=== PATIENT | female | born 1960 | race Caucasian/White ===

== ENCOUNTER 2016-10-27 14:54 | Emergency (ER) | payer BC ==
[2016-10-27 15:41] VITALS: BP 140/77
--- NOTE | 2016-10-27 16:23 | RAD ---
INDICATION: LEFT elbow pain for one week without proceeding injury. COMPARISON: None. TECHNIQUE: AP and lateral views LEFT elbow. REPORT: Normal alignment. Negative for fat pad displacement to indicate effusion. Mild spurring and indolent periosteal thickening at the level of the sublime tubercle of the ulna favoring chronic pathology of the anterior band of the ulnar collateral ligament. Minimal bone spurs at the medial and lateral epicondyles. Unremarkable soft tissue contours. 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
--- NOTE | 2016-10-27 17:04 | ED ---
Upper Extremity Pain - HPI Summary HPI Summary: Pt arrives to with a c/o L elbow pain when pressing again inner aspect of palm. No pain when rotating arm. No pain when pressing against outer aspect of palm. Pain started last week . Pt also has hx: left tibia fracture to which she is currently in a boot- unknown cause and no known trauma. Pt worried about new fracture considering new CA diagnosis. 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 No known trauma of the elbow or overuse injuries or actions. - History of Current Complaint Chief Complaint: UCGeneralIllness Stated Complaint: ELBOW PAIN Time Seen by Provider: 10/27/16 15:33 Hx Obtained From: Patient Hx Last Menstrual Period: N/A Mechanism Of Injury: Unknown Onset/Duration: Started Weeks Ago Timing: Constant Severity Initially: Mild Severity Currently: Mild Pain Location: Elbow - left Character: Sharp, Aching Aggravating Factor(s): Movement, Flexion, Abduction Alleviating Factor(s): Rest Associated Signs & Symptoms: Positive: Negative Related History: Dominant Hand Right - Risk Factors Non-Orthopedic Risk Factor: Negative DVT Risk Factors: Malignancy Septic Arthritis Risk Factor: Negative Compartment Syndrome Risk Factors: Pain - Allergies/Home Medications Allergies/Adverse Reactions: Allergies Allergy/AdvReac Type Severity Reaction Status Date / Time Amoxicillin [From Augmentin] Allergy Intermediate Rash Verified 10/27/16 15:26 Cephalexin [From Keflex] Allergy Intermediate Rash Verified 10/27/16 15:26 Clavulanic Acid Allergy Intermediate Rash Verified 10/27/16 15:26 [From Augmentin] PMH/Surg Hx/FS Hx/Imm Hx Previously Healthy: Yes Endocrine/Hematology History: Denies: Hx Diabetes, Hx Thyroid Disease Cardiovascular History: Reports: Hx Hypertension Denies: Hx Pacemaker/ICD Respiratory History: Denies: Hx Asthma, Hx Chronic Obstructive Pulmonary Disease (COPD) GI History: Reports: Hx Ulcer - gerd Sensory History: Denies: Hx Hearing Aid Psychiatric History: Denies: Hx Panic Disorder - Cancer History Cancer Type, Location and Year: Hx: monoclonal gammopathy - bone marrow biopsy, approx. Jul 2016 - [facility]. - Surgical History Surgery Procedure, Year, and Place: BIOPSIES - BONE - BENIGN Infectious Disease History: No Infectious Disease History: Denies: Hx Clostridium Difficile, Hx Hepatitis, Hx Human Immunodeficiency Virus (HIV), Hx of Known/Suspected MRSA, Hx Shingles, Hx Tuberculosis, Hx Known/ Suspected VRE, Hx Known/Suspected VRSA, History Other Infectious Disease, Traveled Outside the [place] in Last 30 Days - Family History Known Family History: Positive: Hypertension - Social History Occupation: Employed Full-time Lives: With Family Alcohol Use: None Hx Substance Use: No Substance Use Type: Reports: None Hx Tobacco Use: No Smoking Status (MU): Never Smoked Tobacco Have You Smoked in the Last Year: No Review of Systems Constitutional: Negative Eyes: Negative Cardiovascular: Negative Respiratory: Negative Positive: Arthralgia - left elbow while pressing on palm Skin: Negative Psychological: Normal All Other Systems Reviewed And Are Negative: Yes Physical Exam Triage Information Reviewed: Yes Vital Signs On Initial Exam: Initial Vitals Temp Pulse Resp BP Pulse Ox 99.4 F 78 18 140/77 97 10/27/16 15:29 10/27/16 15:29 10/27/16 15:29 10/27/16 15:29 10/27/16 15:29 Vital Signs Reviewed: Yes Appearance: Positive: Well-Appearing, Well-Nourished Skin: Positive: Warm, Skin Color Reflects Adequate Perfusion Head/Face: Positive: Normal Head/Face Inspection Eyes: Positive: Normal, ERICA, Conjunctiva Clear ENT: Positive: Normal ENT inspection Neck: Positive: Supple, No Lymphadenopathy Respiratory/Lung Sounds: Positive: Clear to Auscultation, Breath Sounds Present Cardiovascular: Positive: Normal, RRR Musculoskeletal: Positive: Strength/ROM Intact, Pain @ - medial elbow pain on palpation Neurological: Positive: Sensory/Motor Intact, Speech Normal Psychiatric: Positive: Normal Diagnostics - Vital Signs Vital Signs Temp Pulse Resp BP Pulse Ox 10/27/16 15:29 99.4 F 78 18 140/77 97 - Laboratory Lab Statement: Any lab studies that have been ordered have been reviewed, and results considered in the medical decision making process. Course/Dx - Course Course Of Treatment: NEGATIVE FOR FX. PATIENT ENCOURAGED TO CONTINUE TO TAKE IBUPROFEN AND FOLLOW UP NEEDED FOR WORSENING SXS. PATIENT AGREES AND OK FOR DISCHARGE HOME. - Diagnoses Differential Diagnosis/HQI/PQRI: Positive: Contusion, Fracture (Closed), Strain Provider Diagnoses: Tendonitis Discharge - Discharge Plan Condition: Stable Disposition: HOME Patient Education Materials: Tendinitis (ED) Referrals: Nena Aguilar MD [Primary Care Provider] - Additional Instructions: FOLLOW UP WITH YOUR PCP IF SYMPTOMS BECOME WORSE, COME BACK TO ED OR FOLLOW UP WITH AN ORTHOPEDIST IBUPROFEN FOR ANY DISCOMFORT. TRY NOT TO OVERUSE THE ELBOW
== END 2016-10-27 16:50 | disposition home or self-care (01) ==
LOC: UCEAST 14:54
DX: M77.9 Enthesopathy, unspecified (principal); I10 Essential (primary) hypertension; Z88.1 Allergy status to other antibiotic agents; Z91.09 Other allergy status, other than to drugs and biological substances
CPT/HCPCS: 99211; G0463

== ENCOUNTER 2016-12-31 13:26 | Emergency (ER) | payer BC ==
[2016-12-31 13:55] VITALS: BP 123/61
--- NOTE | 2016-12-31 14:27 | UC ---
Throat Pain/Nasal Silver HPI - HPI Summary HPI Summary: The patient comes in today for: 1. Cough and sore throat: Onset: Sore throat--three days ago. Cough--2 days ago. Palliative/provocative: Laying down makes it worse at night. Quality: Harsh. Region: Upper respiratory Severity: 5/10 Time: Constant sore throat. Associated symptoms: Cough: productive, but she has not inspected it. Rhinitis: None. Strep exposure: None. Wheezing: At night. Inhalers: None. Dyspnea: None. * - History of Current Complaint Chief Complaint: UCRespiratory Stated Complaint: SORE THROAT,COUGH Time Seen by Provider: 12/31/16 14:21 Hx Obtained From: Patient Hx Last Menstrual Period: N/A ?: No - Allergies/Home Medications Allergies/Adverse Reactions: Allergies Allergy/AdvReac Type Severity Reaction Status Date / Time Amoxicillin [From Augmentin] Allergy Intermediate Rash Verified 12/31/16 13:55 Cephalexin [From Keflex] Allergy Intermediate Rash Verified 12/31/16 13:55 Clavulanic Acid Allergy Intermediate Rash Verified 12/31/16 13:55 [From Augmentin] PMH/Surg Hx/FS Hx/Imm Hx Previously Healthy: No - She has "Sclerodema" Cardiovascular History: Hypertension GI/ History: Gastroesophageal Reflux - Surgical History Surgical History: None Surgery Procedure, Year, and Place: BIOPSIES - BONE - BENIGN - Family History Known Family History: Positive: Cardiac Disease, Hypertension, Diabetes - Social History Occupation: Employed Full-time Alcohol Use: None Substance Use Type: None Smoking Status (MU): Never Smoked Tobacco Have You Smoked in the Last Year: No - Immunization History Most Recent Influenza Vaccination: 2016 Most Recent Tetanus Shot: Pt states less than 10 yrs Review of Systems Constitutional: Negative Skin: Negative Eyes: Negative ENT: Sore Throat Respiratory: Cough Cardiovascular: Negative Gastrointestinal: Negative All Other Systems Reviewed And Are Negative: Yes Physical Exam Triage Information Reviewed: Yes Appearance: Well-Appearing, No Pain Distress, Well-Nourished Vital Signs: Initial Vital Signs Temp 98.9 F 12/31/16 13:47 Pulse 82 12/31/16 13:47 Resp 16 12/31/16 13:47 BP 123/61 12/31/16 13:47 Pulse Ox 99 12/31/16 13:47 Vital Signs Reviewed: Yes Eyes: Positive: Conjunctiva Clear. Negative: Discharge ENT: Positive: Hearing grossly normal. Negative: Pharyngeal erythema, Nasal congestion, Nasal drainage, TM bulging, TM dull, TM red, Tonsillar swelling, Tonsillar exudate Dental: Negative: Gross Decay/Caries @, Dental Fracture @ Neck: Positive: Supple, Nontender, No Lymphadenopathy. Negative: Nuchal Rigidity Respiratory: Positive: Chest non-tender, Lungs clear, No respiratory distress, No accessory muscle use, Other: - Mallampati score: II. Negative: Crackles, Wheezing Cardiovascular: Positive: RRR, No Murmur Abdomen Description: Positive: Nontender, No Organomegaly, Soft. Negative: Distended, Guarding Musculoskeletal: Positive: Strength Intact, ROM Intact, No Edema Neurological: Positive: Alert, Muscle Tone Normal Psychological: Positive: Age Appropriate Behavior, Consolable Skin: Negative: rashes, breakdown Diagnostics - Laboratory Diagnostic Studies Completed/Ordered: Strep test: (-) Throat Pain/Nasal Course/Dx - Course Course Of Treatment: Patient was told of the negative strep test. Treatment options were discussed. - Differential Dx/Diagnosis Differential Diagnosis/HQI/PQRI: Tonsillitis Provider Diagnoses: Viral upper respiratory infection. Viral pharyngitis Discharge - Discharge Plan Condition: Stable Disposition: HOME Patient Education Materials: Pharyngitis (ED), Upper Respiratory Infection (ED) Referrals: Nena Aguilar MD [Primary Care Provider] - 1 Week (Please see your primary care provider in about one to two weeks to see how well you are doing. If you get worse, please be seen sooner.)
== END 2016-12-31 14:55 | disposition home or self-care (01) ==
LOC: UCCORT 13:26
DX: J06.9 Acute upper respiratory infection, unspecified (principal)
CPT/HCPCS: 87651; 99212; G0463

== ENCOUNTER 2017-06-28 15:00 | Emergency (ER) | payer BC ==
[2017-06-28 15:53] VITALS: BP 137/68
--- NOTE | 2017-06-28 16:11 | UC ---
Throat Pain/Nasal Silver HPI - HPI Summary HPI Summary: 57 y/o female with h/o MCUG, scleroderma around the neck/face, HTN, GERD presents with nasal congestion, tenderness, nighttime cough since tuesday, symptoms have been worsening, no ear pain, + throat irritation. no recent abx use, no recent illnesses. 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 - History of Current Complaint Chief Complaint: UCRespiratory Stated Complaint: COUGH Time Seen by Provider: 06/28/17 15:52 Hx Last Menstrual Period: N/A ?: No Onset/Duration: Sudden Onset, Lasting Days Severity: Moderate - Allergies/Home Medications Allergies/Adverse Reactions: Allergies Allergy/AdvReac Type Severity Reaction Status Date / Time Amoxicillin [From Augmentin] Allergy Intermediate Rash Verified 06/28/17 15:50 Cephalexin [From Keflex] Allergy Intermediate Rash Verified 06/28/17 15:50 Clavulanic Acid Allergy Intermediate Rash Verified 06/28/17 15:50 [From Augmentin] PMH/Surg Hx/FS Hx/Imm Hx Previously Healthy: No - htn, MCUG, scleroderma - Surgical History Surgical History: None Surgery Procedure, Year, and Place: BIOPSIES - BONE - BENIGN - Family History Known Family History: Positive: Cardiac Disease, Hypertension, Diabetes - Social History Alcohol Use: None Substance Use Type: None Smoking Status (MU): Never Smoked Tobacco Have You Smoked in the Last Year: No - Immunization History Most Recent Influenza Vaccination: 2016 Most Recent Tetanus Shot: Pt states less than 10 yrs Review of Systems Constitutional: Fatigue ENT: Sore Throat, Sinus Congestion, Sinus Pain/Tenderness Respiratory: Cough Is Patient Immunocompromised?: No All Other Systems Reviewed And Are Negative: Yes Physical Exam Triage Information Reviewed: Yes Appearance: No Pain Distress, Well-Nourished, Ill-Appearing - minimal Vital Signs: Initial Vital Signs Temp 98.4 F 06/28/17 15:46 Pulse 74 06/28/17 15:46 Resp 18 06/28/17 15:46 BP 137/68 06/28/17 15:46 Pulse Ox 99 06/28/17 15:46 Vital Signs Reviewed: Yes Eyes: Positive: Conjunctiva Clear ENT: Positive: Pharyngeal erythema - minimal, Nasal congestion, TM bulging, TM dull, TM red - R ear TM buldging with fluid levels, Sinus tenderness, Uvula midline. Negative: Tonsillar swelling, Tonsillar exudate, Dental tenderness Neck: Positive: Supple, Other: - woody, hard appearing skin consistent with h/o scleroderma around neck b/l Respiratory: Positive: Chest non-tender, Lungs clear, Normal breath sounds, No respiratory distress, No accessory muscle use. Negative: Crackles, Rhonchi, Stridor, Wheezing Cardiovascular: Positive: RRR, No Murmur, Pulses Normal Throat Pain/Nasal Course/Dx - Course Course Of Treatment: AOM, sinusitis, ABXC given, work note - Differential Dx/Diagnosis Differential Diagnosis/HQI/PQRI: Foreign Body, Influenza, Laryngitis, Otitis Media, Pharyngitis, URI Provider Diagnoses: AOM R side, sinusitis Discharge - Discharge Plan Condition: Good Disposition: HOME Prescriptions: Azithromycin TAB* [Zithromax TAB (Z-PRETTY) 250 mg #6 tabs] 2 tab PO .TODAY, THEN 1 DAILY #1 pretty Patient Education Materials: Sinusitis (ED), Otitis Media (ED) Forms: *Work Release Referrals: Nena Aguilar MD [Primary Care Provider] - Additional Instructions: - GO to ER with shortness of breath, fever, increasing symptoms - Increase fluid intake, increase rest - Follow up with primary for re-evaluation within 3-4 days - humidifier at night to decrease cough - over the counter medications for cough, motrin/ tylenol for fever, chills
== END 2017-06-28 16:12 | disposition home or self-care (01) ==
LOC: UCCORT 15:00
DX: H66.91 Otitis media, unspecified, right ear (principal); J32.9 Chronic sinusitis, unspecified; Z88.1 Allergy status to other antibiotic agents; I10 Essential (primary) hypertension; M34.9 Systemic sclerosis, unspecified
CPT/HCPCS: 99212; G0463

== ENCOUNTER 2018-07-03 11:32 | Emergency (ER) | payer SELFPAY ==
[2018-07-03 12:58] VITALS: BP 152/73
--- NOTE | 2018-07-03 13:08 | UC ---
Shoulder Pain HPI - HPI Summary HPI Summary: 58 y/o female presents to the urgent care c/o left shoulder pain s/p injury w/ a ramp railing on Tuesday06/30/2018. 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 She has severe pain , but then she applied ice and took Ibuprofen PO 400mg and symptoms improve. The next day she noticed mild swelling over her shoulder. Pain is sharp at touch 6/10 and mild at rest 3/10. Pt denies numbness or tingling sensation over the left arm, fever, bruise, SOB, chest pain, abdominal pain, N/V/D. 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 - History of Current Complaint Chief Complaint: UCUpperExtremity Stated Complaint: LT SHOULDER INJURY (WC) Time Seen by Provider: 07/03/18 13:04 Hx Obtained From: Patient Hx Last Menstrual Period: N/A Onset/Duration: Sudden Onset, Lasting Days - 3 days, Still Present Timing: Constant Severity Initially: Moderate Severity Currently: Mild Location Of Pain: Is Discrete @ - left shoulder Pain Intensity: 4 Pain Scale Used: 0-10 Numeric Character: Sharp - w/ movement, Dull - at rest Aggravating Factor(s): Movement, Other - touch Alleviating Factor(s): Rest, Ice, OTC Meds - ibuprofen PO 400mg Associated Signs And Symptoms: Positive: Swelling - mild. Negative: Redness, Bruising, Fever, Weakness, Numbness/Tingling Related History: Dominant Hand Right - Risk Factors Non-Orthopedic Risk Factor: Negative DVT Risk Factors: Negative Septic Arthritis Risk Factor: Negative - Allergies/Home Medications Allergies/Adverse Reactions: Allergies Allergy/AdvReac Type Severity Reaction Status Date / Time amoxicillin [From Augmentin] Allergy Intermediate Rash Verified 07/03/18 13:05 cephalexin Allergy Intermediate Rash Verified 07/03/18 13:05 clavulanic acid Allergy Intermediate Rash Verified 07/03/18 13:05 [From Augmentin] PMH/Surg Hx/FS Hx/Imm Hx Previously Healthy: Yes Other Endocrine History: Scleroderma Adultrum of [place], Monoclonal gammopathies Cardiovascular History: Hypertension GI/ History: Gastroesophageal Reflux - Surgical History Surgical History: None Surgery Procedure, Year, and Place: BIOPSIES - BONE - BENIGN; left ankle biopsy - 2018 - Family History Known Family History: Positive: Cardiac Disease, Hypertension, Diabetes - Social History Occupation: Employed Full-time Lives: With Family Alcohol Use: None Substance Use Type: None Smoking Status (MU): Never Smoked Tobacco Have You Smoked in the Last Year: No - Immunization History Most Recent Influenza Vaccination: 2016 Most Recent Tetanus Shot: Pt states less than 10 yrs Review of Systems All Other Systems Reviewed And Are Negative: Yes Constitutional: Positive: Negative Skin: Positive: Other - mild swelling over the left shoulder s/p injury Eyes: Positive: Negative ENT: Positive: Negative Respiratory: Positive: Negative Cardiovascular: Positive: Negative Gastrointestinal: Positive: Negative Genitourinary: Positive: Negative Motor: Positive: Negative Neurovascular: Positive: Negative Musculoskeletal: Positive: Decreased ROM - left shoulder, Other: - left shoulder pain s/p injury Neurological: Positive: Negative Psychological: Positive: Negative Is Patient Immunocompromised?: No Physical Exam - Summary Physical Exam Summary: Vital Signs Reviewed: Yes GENERAL: Well-Appearing, No Pain Distress, Well-Nourished obese female w/o any apparent pain distress Eyes: Positive: Conjunctiva Clear - PERRL,EOMI ENT: Positive: Normal ENT inspection, Hearing grossly normal, Pharyngeal erythema - mild, Nasal drainage - clear, Uvula midline Neck: Positive: Supple, Nontender, No Lymphadenopathy Respiratory: Positive: Chest non-tender, Lungs clear, Normal breath sounds, No respiratory distress Cardiovascular: Positive: RRR, No Murmur, Pulses Normal, Brisk Capillary Refill Abdomen Description: Positive: Nontender, No Organomegaly, Soft. Negative: CVA Tenderness (R), CVA Tenderness (L) Bowel Sounds: Positive: Present Musculoskeletal: LF shoulder: The L shoulder is with/without obvious asymmetry or deformity when compared to the R shoulder. Mild soft tissue swelling over the acromoclavicular joint , no ecchymosis, no bruising, no crepitus. No bony deformity or prominence of humeral head. No erythema, warmth. No Point Tenderness to palpation over the clavicle, or scapula. positive tenderness over Acromioclavicular joint and humeral head. NT to palpation of the bicipital groove . NT to palpation of the muscles of the sternocleidomastoid, pectoralis, biceps/triceps, deltoid, trapezius, . FROM or left shoulder. both passive and active, internal/external rotation, flexion/extension. "empty can and drop arm test : negative. No axillary tenderness or lymphadenopathy. Normal sensation over the deltoid and fingers. Distal motor and neurovascular status is intact. Neurological Exam: Normal Psychological Exam: Normal Skin Exam: Normal Triage Information Reviewed: Yes Vital Signs: Initial Vital Signs Temp 99.2 F 07/03/18 12:47 Pulse 78 07/03/18 12:47 Resp 24 07/03/18 12:47 BP 152/73 07/03/18 12:47 Pulse Ox 99 07/03/18 12:47 Shoulder Course/Dx - Course Course Of Treatment: 58 y/o female presents to the urgent care c/o left shoulder pain s/p injury w/ a ramp railing on Tuesday06/30/2018. 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 She has severe pain, but then she applied ice and took Ibuprofen PO 400mg and symptoms improve. The next day she noticed mild swelling over her shoulder. Pain is sharp at touch 6/10 and mild at rest 3/10. Pt denies numbness or tingling sensation over the left arm, fever, bruise, SOB, chest pain, abdominal pain, N/V/D. Pt w/ PMHX of Scleroderma Adultrum of [employer] and Monoclonal gammopathies.Hx obtained. Pt w/ a left shoulder contusion on examination. LF shoulder X-ray ordered: Impression: Mild AC joint Osteoarthritis and stigmata chronic rotator cuff pathology. This may be due to PT PMHX of Scleroderma. However Pt w/Soft tissue swelling over AC due to contusion. Pt advised to continue taking Ibuprofen PO to alleviate symptoms. Shoulder immobilized with a shoulder sling for 3-4 days. Advised to f/u with Orthopedic referral DR Desir if not improvement of symptoms in 1 week for further management. Pt's BP is elevated today advised to decrease salt in diet, monitor BP and f/u with PCP for further management.D/c instructions explained. Pt understood and agreed w/ plan of care. - Differential Dx/Diagnosis Differential Diagnosis/HQI/PQRI: Arthritis, Contusion, Dislocation, Fracture ( Closed), Rotator Cuff Injury, Sprain, Strain, Tendonitis Provider Diagnosis: Left shoulder pain, Contusion of shoulder, left, Osteoarthritis of left shoulder, Uncontrolled hypertension Discharge - Sign-Out/Discharge Documenting (check all that apply): Patient Departure - D/C home All imaging exams completed and their final reports reviewed: Yes - Discharge Plan Condition: Stable Disposition: HOME Patient Education Materials: Rotator Cuff Tendinitis (ED), Osteoarthritis (ED) , Low-Sodium Diet (ED) Forms: *Work Release Referrals: Nena Aguilar MD [Primary Care Provider] - 1 Week Shahriar Desir MD [Medical Doctor] - 1 Week Additional Instructions: 1- You probably have a contusion of your left shoulder. Please continue taking Ibuprofen PO q6-8hrs prn after meals to alleviate pain and swelling. 2-Please apply ice, keep your shoulder immobilized with the shoulder sling for 3-4 days and then resume movement slowly 3- Please f/u with Orthopedic Dr Desir or your PCP in 1 week is not improvement of symptoms for further evaluation and treatment. Since you are also presenting w/ osteoarthritis and a choric rotator cuff pathology which may be due to your scleroderma. 4- Your BP is elevated today. please decrease salt in your diet, monitor BP and if it continues to be elevated please f/u with your PCP for further management - Billing Disposition and Condition Condition: STABLE Disposition: Home
== END 2018-07-03 14:17 | disposition home or self-care (01) ==
LOC: UCCORT 11:32
DX: M25.512 Pain in left shoulder (principal); S40.012A Contusion of left shoulder, initial encounter; W20.8XXA Other cause of strike by thrown, projected or falling object, initial encounter; Y93.89 Activity, other specified; Y92.89 Other specified places as the place of occurrence of the external cause; Y99.0 Civilian activity done for income or pay; I10 Essential (primary) hypertension; M19.012 Primary osteoarthritis, left shoulder; Z88.0 Allergy status to penicillin; Z88.1 Allergy status to other antibiotic agents; Z88.5 Allergy status to narcotic agent
CPT/HCPCS: 99212; G0463

== ENCOUNTER 2018-11-13 13:17 | Emergency (ER) | payer BC, OTHER ==
[2018-11-13 13:45] VITALS: BP 144/66
--- NOTE | 2018-11-13 14:26 | UC ---
Complaint Female HPI - HPI Summary HPI Summary: 58 -year-old female who had some left-sided lower back pain over the past couple of days. She has had frequency of urination but no burning. She states there will be blood in her urine because she accidentally scratched herself while she was urinating and there was some bleeding in the genital area where she scratched. - History Of Current Complaint Chief Complaint: UCBackPain Stated Complaint: LEFT SIDE LOW BACK PAIN Time Seen by Provider: 11/13/18 14:26 Hx Obtained From: Patient Hx Last Menstrual Period: N/A ?: No Onset/Duration: Gradual Onset Timing: Intermittent - Symptoms Over the past 2-3 days. Severity Initially: Mild Severity Currently: Mild Pain Intensity: 5 Character: Dull Aggravating Factor(s): Nothing Alleviating Factor(s): Nothing Associated Signs And Symptoms: Positive: Negative - Allergies/Home Medications Allergies/Adverse Reactions: Allergies Allergy/AdvReac Type Severity Reaction Status Date / Time amoxicillin [From Augmentin] Allergy Intermediate Rash Verified 11/13/18 13:39 cephalexin Allergy Intermediate Rash Verified 11/13/18 13:39 clavulanic acid Allergy Intermediate Rash Verified 11/13/18 13:39 [From Augmentin] Home Medications: Home Medications Ibuprofen TAB* [Advil TAB*] 400 mg PO Q6H PRN 11/13/18 [History Confirmed ] PMH/Surg Hx/FS Hx/Imm Hx Previously Healthy: Yes - Surgical History Surgical History: Yes Surgery Procedure, Year, and Place: BIOPSIES - BONE - BENIGN; left ankle biopsy - 2018 - Family History Known Family History: Positive: Cardiac Disease, Hypertension, Diabetes, Renal Disease - Patient has sibling with kidney stones. - Social History Alcohol Use: None Substance Use Type: None Smoking Status (MU): Never Smoked Tobacco Have You Smoked in the Last Year: No - Immunization History Most Recent Influenza Vaccination: 2016 Most Recent Tetanus Shot: Pt states less than 10 yrs Review of Systems All Other Systems Reviewed And Are Negative: Yes Motor: Positive: Negative Neurovascular: Positive: Negative Musculoskeletal: Positive: Other: - Mild soreness in the left lower back. Patient is unable to replicate the pain. Neurological: Positive: Negative Psychological: Positive: Negative Is Patient Immunocompromised?: No Physical Exam Triage Information Reviewed: Yes Appearance: Well-Appearing, No Pain Distress, Well-Nourished Vital Signs: Initial Vital Signs Temp 97.9 F 11/13/18 13:41 Pulse 67 11/13/18 13:41 Resp 18 11/13/18 13:41 BP 144/66 11/13/18 13:41 Pulse Ox 97 11/13/18 13:41 Vital Signs Reviewed: Yes Eye Exam: Normal ENT Exam: Normal Neck exam: Normal Respiratory Exam: Normal Cardiovascular Exam: Normal Abdominal Exam: Normal Bowel Sounds: Positive: Present Musculoskeletal Exam: Normal Neurological Exam: Normal Psychological Exam: Normal Skin Exam: Normal Complaint Female Dx - Course Course Of Treatment: This 58-year-old female thought she might have a urinary tract infection because she was having some urinary frequency over the past couple of days. Her urine was positive with leukocytes. It was also positive with blood but she stated she accidentally scratched herself on the genital area while she was urinating and was able to retrieve blood. She has no CVA tenderness. She is unable to replicate the pain with movement. I'm going to treat her for urinary tract infection and then follow-up with her primary care provider in 3 or 4 days if no improvement. - Differential Dx/Diagnosis Provider Diagnosis: UTI (urinary tract infection) Discharge - Sign-Out/Discharge Documenting (check all that apply): Patient Departure All imaging exams completed and their final reports reviewed: No Studies - Discharge Plan Condition: Good Disposition: HOME Prescriptions: Nitrofurantoin Monohyd/M-Cryst [Macrobid 100 mg Capsule] 100 mg PO BID 7 Days # 14 cap Patient Education Materials: Urinary Tract Infection in Women (ED) Referrals: Nena Aguilar MD [Primary Care Provider] - Additional Instructions: Increase fluids, follow-up with her primary care provider if no improvement in 4 -5 days. If you develop fever, chills, increased back pain, vomiting and unable to keep the medicine down, go to the emergency room. - Billing Disposition and Condition Condition: GOOD Disposition: Home - Attestation Statements Provider Attestation: I was available for consult. This patient was seen by the [facility]. The patient was not presented to, seen by, or examined by me. -Regis
--- NOTE | 2018-11-15 07:06 | UC ---
- Progress Note Progress Note: urine culture final - no growth please call pt - if not improved needs to f.u with PCP if improved, complete abx course ljj 11/15/18 Course/Dx - Diagnoses Provider Diagnoses: UTI (urinary tract infection) Discharge - Sign-Out/Discharge Documenting (check all that apply): Post-Discharge Follow Up All imaging exams completed and their final reports reviewed: No Studies - Discharge Plan Condition: Good Disposition: HOME Prescriptions: Nitrofurantoin Monohyd/M-Cryst [Macrobid 100 mg Capsule] 100 mg PO BID 7 Days # 14 cap Patient Education Materials: Urinary Tract Infection in Women (ED) Referrals: Nena Aguilar MD [Primary Care Provider] - Additional Instructions: Increase fluids, follow-up with her primary care provider if no improvement in 4 -5 days. If you develop fever, chills, increased back pain, vomiting and unable to keep the medicine down, go to the emergency room. - Billing Disposition and Condition Condition: GOOD Disposition: Home
== END 2018-11-13 14:43 | disposition home or self-care (01) ==
LOC: UCCORT 13:17
DX: N39.0 Urinary tract infection, site not specified (principal); Z88.3 Allergy status to other anti-infective agents
CPT/HCPCS: 81003; 87086; 99212; G0463

== ENCOUNTER 2019-02-02 19:04 | Emergency (ER) | payer BC ==
[2019-02-02 19:30] VITALS: BP 151/72
--- NOTE | 2019-02-02 19:58 | UC ---
UC General HPI - HPI Summary HPI Summary: 58-year-old woman comes in with a chief complaint of feeling of a mass in her neck. About 2 weeks ago patient started noticing what feels like increased swelling of the right lower aspect of her neck. Its gradually gotten more noticeable with some difficulty swallowing. Denies any shortness of breath. No fevers or chills feels well otherwise. 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 She is in the process of undergoing evaluation for this condition. - History of Current Complaint Chief Complaint: UCGeneralIllness Stated Complaint: THROAT CONCERN Time Seen by Provider: 02/02/19 19:29 Hx Last Menstrual Period: N/A Pain Intensity: 0 - Allergy/Home Medications Allergies/Adverse Reactions: Allergies Allergy/AdvReac Type Severity Reaction Status Date / Time amoxicillin [From Augmentin] Allergy Intermediate Rash Verified 02/02/19 19:24 cephalexin Allergy Intermediate Rash Verified 02/02/19 19:24 clavulanic acid Allergy Intermediate Rash Verified 02/02/19 19:24 [From Augmentin] PMH/Surg Hx/FS Hx/Imm Hx Previously Healthy: Yes - SCLEREDEMA - Surgical History Surgical History: Yes Surgery Procedure, Year, and Place: BIOPSIES - BONE - BENIGN; left ankle biopsy - 2018 - Family History Known Family History: Positive: Cardiac Disease, Hypertension, Diabetes, Renal Disease - Patient has sibling with kidney stones. - Social History Alcohol Use: None Substance Use Type: None Smoking Status (MU): Never Smoked Tobacco Have You Smoked in the Last Year: No - Immunization History Most Recent Influenza Vaccination: 2016 Most Recent Tetanus Shot: Pt states less than 10 yrs Review of Systems All Other Systems Reviewed And Are Negative: Yes Constitutional: Positive: Negative Skin: Positive: Other - SCLEREDEMA Eyes: Positive: Negative ENT: Positive: Other - SEE HPI Respiratory: Positive: Negative Cardiovascular: Positive: Negative Gastrointestinal: Positive: Negative Motor: Positive: Negative Neurovascular: Positive: Negative Musculoskeletal: Positive: Other: - SEE HPI Neurological: Positive: Negative Psychological: Positive: Negative Is Patient Immunocompromised?: No Physical Exam Triage Information Reviewed: Yes Appearance: Well-Appearing, No Pain Distress, Well-Nourished Vital Signs: Initial Vital Signs Temp 97.4 F 02/02/19 19:25 Pulse 72 02/02/19 19:25 Resp 20 02/02/19 19:25 BP 151/72 02/02/19 19:25 Pulse Ox 100 02/02/19 19:25 Vital Signs Reviewed: Yes Eye Exam: Normal Eyes: Positive: Conjunctiva Clear ENT: Positive: Pharynx normal - Uvula is midline posterior pharynx is open. Anatomy is symmetric., Uvula midline, Other. Negative: Tonsillar swelling, Muffled voice, Hoarse voice Neck: Positive: Other: - On examination of the neck the tissue is firm bilaterally consistent with scleredema. The right lower aspect of the neck appears to be more full than the left side. There is no stridor. Respiratory: Positive: Lungs clear, Normal breath sounds, No respiratory distress. Negative: Stridor Cardiovascular: Positive: RRR Musculoskeletal: Positive: Strength Intact Neurological: Positive: Alert Psychological: Positive: Age Appropriate Behavior Skin: Positive: Other - SCLEREDEMA Course/Dx - Course Course Of Treatment: On examination the patient is no respiratory distress she has been able to eat and drink. Patient relates to me that during a procedure where she needed to be intubated about 4 months ago that a very difficult time with intubation due to the scleredema. Due to the scleredema and the complexity of her condition I recommended further evaluation in the [facility] emergency department. At this time the plan is as long she does not get any worse she's got doctor her doctor on Tuesday, February 05, 2019 to determine further evaluation. Overall I recommended that a [facility] is the most appropriate place for her. If she gets any worsening she is going to get evaluated in the emergency department preferably the [facility] emergency department. - Diagnoses Provider Diagnosis: Mass in neck Discharge - Sign-Out/Discharge Documenting (check all that apply): Patient Departure All imaging exams completed and their final reports reviewed: No Studies - Discharge Plan Condition: Stable Disposition: HOME Referrals: Nena Aguilar MD [Primary Care Provider] - Additional Instructions: FOLLOW UP WITH YOUR DOCTOR ON 02/05/19, FOR YOUR NECK MASS GO TO THE EMERGENCY DEPARTMENT IF WORSE; DIFFICULTY SWALLOWING OR BREATHING OR ANY QUESTIONS OR CONCERNS. - Billing Disposition and Condition Condition: STABLE Disposition: Home
== END 2019-02-02 20:04 | disposition home or self-care (01) ==
LOC: UCCORT 19:04
DX: R22.1 Localized swelling, mass and lump, neck (principal); M34.9 Systemic sclerosis, unspecified
CPT/HCPCS: 99211; G0463

== ENCOUNTER 2019-05-10 12:09 | Emergency (ER) | payer BC ==
--- OUTSIDE RECORDS SUMMARY | 2019-05-10 12:29 | XMS REPORT | Summary of Care ---
:1960 Author Organization [facility] Address [address] [place] [address] Care Team Providers Name Role Phone Nena Aguilar MD Primary Care Provider Reason for Referral MRI/CAT/PET Scan (Routine) Status Reason Specialty Diagnoses / Referred By Referred To Procedures Contact Contact Authorized Diagnoses Lung nodule Erlinda Jaimes MD Procedures CT CHEST WITHOUT IV CONTRAST [address] [place] [address] Reason for Visit Reason Comments Sleep Apnea Follow Up Encounter Details Date Type Department Care Team Description 04/02/2019 Office Visit [facility] Erlinda Jaimes MD Solitary pulmonary nodule (Primary Dx); [address] Lung nodule [place] [id number] [place] [id number] Allergies Active Allergy Reactions Severity Noted Date Comments Augmentin Rash 01/31/2008 Keflex Rash 01/31/2008 documented as of this encounter (statuses as of 04/02/2019) Medications Medication Sig Dispensed Refills Start Date End Date Status famotidine (PEPCID) 20 MG Take 20 mg by 0 Active Oral Tab mouth TWICE DAILY. diclofenac (VOLTAREN) 1 % 4 g by Topical 100 g 2 01/18/2018 Active Transdermal route FOUR GelIndications: Chronic TIMES DAILY pain of both knees NEEDED (knee pain). ibuprofen (MOTRIN) 200 MG Take 400 mg by 0 Active Oral Tab mouth EVERY SIX HOURS NEEDED for Pain. mometasone (ELOCON) 0.1 % Apply to rash 45 g 0 03/30/2018 Active Apply externally bid x 1 week as CreamIndications: needed Dermatitis of lower extremity Omeprazole 40 MG Oral TAKE 1 CAPSULE 30 Cap 5 10/30/2018 Active CAPSULE DELAYED BY MOUTH DAILY RELEASEIndications: NEEDED FOR Gastroesophageal reflux GERD disease without esophagitis lisinopril (PRINIVIL, Take 1 Tab by 90 Tab 3 02/07/2019 Active ZESTRIL) 20 MG Oral mouth DAILY. TabIndications: Essential hypertension, benign documented as of this encounter (statuses as of 04/02/2019) Active Problems Problem Noted Date Primary osteoarthritis of left knee 10/11/2017 Chronic pain of right knee 07/29/2017 Stress fracture of left tibia 12/17/2016 Monoclonal gammopathies 11/01/2016 Essential hypertension, benign 09/28/2012 Reflux esophagitis 09/28/2012 BMI 40.0-44.9, adult 02/03/2012 Overview: sustained wt reduction with portion control and sustained routine exercise. Set realistic goal of 1# wt reduction /week set 10 week goals. 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 2008. Monoclonal gammopathy Overview: followed by hematology, Dr Funez, now once yearly. has had bone marrow biopsies. 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 documented as of this encounter Last Filed Vital Signs Vital Sign Reading Time Taken Comments Blood Pressure 124/70 04/02/2019 10:36 AM EDT Pulse 84 04/02/2019 10:36 AM EDT Temperature 36.7 04/02/2019 10:36 AM EDT C (98.1 F) Respiratory Rate - - Oxygen Saturation 94% 04/02/2019 10:36 AM EDT RA Inhaled Oxygen Concentration - - Weight 126.6 kg (279 lb) 04/02/2019 10:36 AM EDT Height 167.6 cm (5' 6") 04/02/2019 10:36 AM EDT Body Mass Index 45.03 04/02/2019 10:36 AM EDT documented in this encounter Progress Notes Erlinda Jaimes MD - 04/02/2019 11:00 AM EDT PULMONARY MEDICINE Keily Buenrostro [id number] 1960 04/02/19 The patient is known to pulmonary medicine service. She is a patient of Dr. Subramanian and is here for a for MAILE and lung nodule. I am evaluating the patient as a covering physician for Dr. Subramanian in hisabsence. Patient will continue to be follow Dr. Subramanian on his return to pulmonary service. Patient was last seen by Dr. Subramanian on 10/20/2018 and parts of his note are being copied to my note for continuation of management thought process. CHIEF COMPLAINT: Obstructive sleep apnea Lung nodule HISTORY OF PRESENT ILLNESS : Keily Buenrostro is a 58-y.o. female. HPI Comes for follow up with surveillance imaging for lung nodules with previously described mediastinallymphadenopathy. Asymptomatic from a respiratory standpoint. Complains of excessive daytime sleepiness, loud snoring, fragmented sleep, gasps and snort in sleep. Requires frequent naps and does not feel refreshed. [place] score is 9 Associated this with her anatomy of large neck, class 4 airway with mouth opening impairment + classified as Difficult airway by anesthesia at [facility] ; pre test probability of MAILE is estimated high. Follow-up visit: 04/02/2019 Patient is being followed in pulmonary clinic because of lung nodules and obstructive sleep apnea. Patient's lung nodules have been stable on CT scan. Patient is tolerating her CPAP for obstructive sleep apnea for approximately 4 weeks. We do not have the compliance report but she admits to wearingit for at least 5 to 5-1/2 hours. Patient was counseled on compliance. See assessment section below. Past Medical History: Diagnosis Date Abnormal CT of the chest 08/2017 stable pulmonary nodules, small airway disease. Essential (primary) hypertension Essential hypertension, benign H/O CT scan of chest 03/17/[address]: normal coronaries, zero calcium score. Lung nodules noted. History of Holter monitoring for palpitations, negative. Hx of cardiovascular stress test 02/14/2017 indeterminate for ischemia. Monoclonal gammopathy followed by hematology, Dr Funez, now once yearly. has had bone marrow biopsies. 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 2008. Thought she had Mimi Banerjeeer bone dz but other DR. did not thinks she did, has bone pain Past Surgical History: Procedure Laterality Date BONE MARROW BIOPSY 1989 negative. SKIN SUBQ BIOPSY legs, for recurrent leg pain, Family History Problem Relation Age of Onset Diabetes Mother Heart Mother 54 MS Stroke Mother Hypertension Mother Cancer Sister thyroid cancer Diabetes Sister Diabetes Brother Heart Brother 67 MS Diabetes Maternal Grandmother Diabetes Maternal Grandfather Diabetes Brother Heart Brother Afib Allergies Allergen Reactions Augmentin Rash Keflex Rash Social History Socioeconomic History Marital status: Single Spouse name: Not on file Number of children: Not on file Years of education: Not on file Highest education level: Not on file Occupational History Not on file Social Needs Financial resource strain: Not on file Food insecurity: Worry: Not on file Inability: Not on file Transportation needs: Medical: Not on file Non-medical: Not on file Tobacco Use Smoking status: Never Smoker Smokeless tobacco: Never Used Substance and Sexual Activity Alcohol use: No Drug use: No Sexual activity: Never Lifestyle Physical activity: Days per week: Not on file Minutes per session: Not on file Stress: Not on file Relationships Social connections: Talks on phone: Not on file Gets together: Not on file Attends jain service: Not on file Active member of club or organization: Not on file Attends meetings of clubs or organizations: Not on file Relationship status: Not on file Intimate partner violence: Fear of current or ex partner: Not on file Emotionally abused: Not on file Physically abused: Not on file Forced sexual activity: Not on file Other Topics Concern Back Care Not Asked Bike Helmet Not Asked Blood Transfusions No Caffeine Concern Not Asked Exercise Yes Comment: walks at work Hobby Hazards Not Asked International Travel Not Asked Service Not Asked Occupational Exposure Not Asked Seat Belt Not Asked Self-Exams Not Asked Sleep Concern Not Asked Special Diet Not Asked Stress Concern Not Asked Weight Concern Not Asked Social History Narrative Single. No children. 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 Routine exercise: walks 2x/week 1 mile. Pets: 1 cat REVIEW OF SYSTEMS Review of Systems - History obtained from the patient General ROS: Malaise; excessive daytime sleepiness Psychological ROS: negative Ophthalmic ROS: negative ENT ROS: negative Allergy and Immunology ROS: negative Hematological and Lymphatic ROS: negative Endocrine ROS: negative Respiratory ROS: no cough, shortness of breath, or wheezing Cardiovascular ROS: no chest pain or dyspnea on exertion Gastrointestinal ROS: no abdominal pain, change in bowel habits, or black or bloody stools Genito-Urinary ROS: no dysuria, trouble voiding, or hematuria Musculoskeletal ROS: negative Neurological ROS: no TIA or stroke symptoms BP 124/70 Pulse 84 Temp 98.1 F (36.7 C) (Temporal) Ht 5' 6" (1.676 m ) Wt 279 lb (126.6 kg) SpO2 94% BMI 45.03 kg/m2 PHYSICAL EXAMINATION Head: Normocephalic and atraumatic Neck: No JVD; No palpable LN HEENT: PEARLA; No Conjunctival Injection Neck: No thyroid enlargement or enlarged LN noted; CVS: S1S2 regular; no murmurs appreciated Resp: NVB; A/E equal b/l; no rhonchi's or wheezes are audible GIT: Abdomen. Soft; No tenderness; No Organomegaly appreciated; +BS HOP WEIGHER: No focal deficits; Moves all 4 extremities spontaneously; Ext: No cyanosis, -ve edema; peripheral pulses are palpable and equal Skin: Intact without lesions or rashes LABS Lab Results Component Value Date WBC 6.3 05/16/2017 HGB 12.6 05/16/2017 HCT 39.3 05/16/2017 PLAT 331 05/16/2017 Lab Results Component Value Date NA 145 05/16/2017 K 4.1 05/16/2017 CL 107 05/16/2017 CO2 26 05/16/2017 GLUCOSE 104 (H) 05/16/2017 BUN 10 05/16/2017 CREATININE 0.8 05/16/2017 CALCIUM 9.1 05/16/2017 EGFR >60 05/16/2017 No results found for: INR No results found for: PH, PCO2, PO2, SAT, BE RADIOLOGY Lungs and pleura: Multiple pulmonary nodules are stable sinceFe 2018: 7 mm in the right upper lobe on axial 158 series 7 4 mm in right upper lobe on axial 133 5 mm in the left upper lobe on axial 94 5 mm in the left upper lobe on axial 113 IMPRESSION Multiple pulmonary nodules are stable since August 2017. SLEEP STUDY IMPRESSION Obstructive sleep apnea Lung nodule Scleroderma ASSESSMENT Patient is a 58-year-old white female who has been diagnosed with obstructive sleep apnea. Patient also has history of lung nodules which is being followed annually. Patient comes for follow-up today. She feels well otherwise. The CT scan of the chest without contrast was discussed patient was notified that it is no change in the sizes of the lung nodules. We have ordered repeat CT chest without contrast in 1 year for January 2020. After patient was diagnosed with obstructive sleep apnea, she was started on auto CPAP. The settings were between 6 cm H2O and 18 cm H2O. Patient has been using the CPAP for approximately 4 weeks now. She feels that her morning grogginess is disappeared and she feels more energetic in the daytime.We have recommended that patient follow-up in 3 months with compliance report from the [facility]. Patient was also counseled to lose weight. Patient has been educated on sleep hygiene principles. PLAN Continue use of auto CPAP Compliance is of utmost importance Obtain supply of mask and CPAP every 6 months Prior to next visit as per compliance report from [facility] to be faxed to our office Follow sleep hygiene principles Return to clinic in 3 months or earlier if needed Erlinda Jaimes MD 04/02/19 documented in this encounter Plan of Treatment Date Type Specialty Care Team Description 07/10/2019 Office Visit Pulmonary Francis Myers MD [address] [place] [address] 01/22/2020 Appointment Radiology 01/22/2020 Office Visit Pulmonary Francis Myers MD [address] [place] [address] Name Type Priority Associated Diagnoses Order Schedule CT CHEST WITHOUT IV Imaging Routine Lung nodule Expected: 01/23/2020, CONTRAST Expires: 04/01/2020 Health Maintenance Due Date Last Done Comments ZOSTER IMMUNIZATION SERIES 2010 (1 of 2) DEPRESSION SCREENING 02/08/2020 02/07/2019 DIABETES SCREENING 02/15/2020 02/14/2019, 03/16/2018, 05/16/2017, Additional history exists LIPID DISORDER SCREENING 02/15/2020 02/14/2019, 03/16/2018, 04/12/2016 OSTEOPOROSIS SCREENING 12/07/2021 12/07/2016 COLONOSCOPY SCREENING 09/11/2023 09/11/2013 (Declined) HPV IMMUNIZATION SERIES Aged Out No longer eligible based on patient's age to complete this topic MENINGOCOCCAL VACCINE IMM Aged Out No longer eligible based on patient's age to complete this topic PNEUMOCOCCAL 0-64 YRS Aged Out No longer eligible based on patient's age to complete this topic documented as of this encounter Goals Goal Patient Goal Associated Recent Patient-Stated? Author Type Problems Progress Blood Pressure Blood Pressure 124/70 No Kate, < 140/90 (04/02/2019 Breana, 10:36 AM EDT) Note: Hypertension Care Plan Based on the patient's clinical history and according to JNC 8 guidelines target blood pressure goal is less than 140/90. Based on the patient's last blood pressure of BP: 128/72 mmHg the patient is at at goal. As your provider, it is important that I advise you regarding: your current medications and help you with any challenges you may face taking your medications as directed (ex. instructions, cost, side effects, and interactions). Important lifestyle changes: exercise, weight reduction and diet your clinical goals and how you can achieve success: weight reduction, exercise plan and diet improvements medication management: adjusted medications as appropriate patient education/self-management tools provided: Current self-management tools adequate To successfully manage my Hypertension I will: monitor my blood pressure daily, understanding that my goal is less than 140/ 90 per my healthcare provider's recommendation. I will schedule an appointment with my provider if consistent abnormal readings greater than 160/100. take medications every day as prescribed by my healthcare provider and if unable to take them I will discuss with my provider. monitor for symptoms of chest pain, chest tightness/pressure, irregular heartbeat, persistent dizziness, radiating arm pain, and neck or jaw pain. If any of these symptoms are noticed I will seek medical attention immediately by calling 911 exercise/walk 30 minutes 3 day(s) per week. If I experience chest pain, chest tightness, or shortness of breath, I will seek medical attention immediately. follow a diet rich in fruits, vegetables, and low-fat dairy products with reduced content of saturated & total fat. I will reduce my sodium intake daily. An example is the DASH diet. To obtain more information please refer to the DASH Eating Plan listed in Educational Resources. record my blood pressure results. [employer] is safe and secure way for you to do this in your medical record online. try to obtain an ideal body weight. My recent weight was Weight: 258 lb 8 oz (117.255 kg). My weight loss goal for my next office visit is 8# less . limit alcohol consumption. For men two drinks per day and women one drink per day. if currently smoking, will discuss how to quit smoking with my healthcare provider and work towards quitting. Educational Resources: National Heart, Lung, & Blood [place] http://nhlbi.nih.gov/hbp/index.html The DASH Diet Eating Plan http://www.nhlbi.nih.gov/health/health-topics/ topics/dash/ Academy of Nutrition & DIetetics http://eatright.org National Smoking Cessation Site http://smokefree.gov Blood Pressure < Blood Pressure 124/70 (04/02/2019 Nena Centeno 140/90 10:36 AM EDT) MD Santo Note: This is an individualized treatment (blood pressure) goal for Keily Buenrostro: Displayed above (on the left) is your goal for blood pressure control. Your most recent blood pressure is also shown above, on the right. You should try to achieve blood pressures that are lower than your goal listed above (on the left). Weight loss vs. 18 Lifestyle 0 (04/02/2019 10:36 AM No Nena Aguilar mo max (lbs) >= 10 EDT) Note: This is an individualized lifestyle goal for Keily Buenrostro: Your body mass index (BMI) is more than 30. You should lose weight. A reasonable starting goal is to lose 10 pounds. Displayed above is how many pounds you have lost thus far towards your 10 pound weight loss goal. Take all prescribed medications as Self-management Nena Centeno MD directed Note: This is an individualized self-management goal for Keily Buenrostro: Please take all prescribed medications as directed. 1. Do not skip doses. If you cannot afford your medications, talk with your doctor. 2. Use a pill reminder system such as a pill box if needed. Your pharmacist can help you with this. 3. Contact your Pharmacy 5 days before your medication runs out. If you cannot take your medications for any reasons, talk with your doctor. 4. Please bring all of your medication bottles and inhalers (or a list of all your medications/inhalers) with you to every visit. Potential barriers to meeting all of your care plan goals will continue to be addressed on an ongoing basis. documented as of this encounter Results Not on filedocumented in this encounter Visit Diagnoses Diagnosis Solitary pulmonary nodule - Primary Lung nodule Solitary pulmonary nodule documented in this encounter Insurance Payer Benefit Plan / Subscriber ID Effective Dates Phone Address Type Group [employer] xxxxxxxxxxxx 2014-Present [employer] Guarantor Name Account Type Relation to Date of Phone Billing Patient Address Keily Buenrostro Personal/Family 1960 [address] (Home) [place], [place] [phone] [id number] (Work) documented as of this encounter
[2019-05-10 12:38] VITALS: BP 169/75
--- NOTE | 2019-05-10 12:50 | UC ---
Respiratory Complaint HPI - HPI Summary HPI Summary: Pt presents with c/o cough, generalized malaise, and nasal congestion. Pt has HX of "sclerodema". Pt states the cough is worse at night in recumbent position. - History of Current Complaint Chief Complaint: UCRespiratory Stated Complaint: RESP ISSUE COUGH Time Seen by Provider: 05/10/19 12:33 Hx Obtained From: Patient Hx Last Menstrual Period: N/A ?: No Onset/Duration: Gradual Onset, Lasting Days, Still Present Severity Initially: Mild Severity Currently: Mild Pain Intensity: 3 Character: Cough: Nonproductive Aggravating Factors: Exertion, Deep Breaths, Recumbent Position Alleviating Factors: Nothing Associated Signs And Symptoms: Positive: URI, Nasal Congestion - Risk Factors Pulmonary Embolism Risk Factors: Negative Cardiac Risk Factors: Negative Pseudomonas Risk Factors: Negative Tuberculosis Risk Factors: Negative - Allergies/Home Medications Allergies/Adverse Reactions: Allergies Allergy/AdvReac Type Severity Reaction Status Date / Time amoxicillin [From Augmentin] Allergy Intermediate Rash Verified 05/10/19 12:39 cephalexin Allergy Intermediate Rash Verified 05/10/19 12:39 clavulanic acid Allergy Intermediate Rash Verified 05/10/19 12:39 [From Augmentin] PMH/Surg Hx/FS Hx/Imm Hx Previously Healthy: Yes - "sclerodema" - Surgical History Surgical History: Yes Surgery Procedure, Year, and Place: BIOPSIES - BONE - BENIGN; left ankle biopsy - 2018 - Family History Known Family History: Positive: Cardiac Disease, Hypertension, Diabetes, Renal Disease - Patient has sibling with kidney stones. - Social History Occupation: Employed Full-time Lives: With Family Alcohol Use: None Substance Use Type: None Smoking Status (MU): Never Smoked Tobacco Have You Smoked in the Last Year: No - Immunization History Most Recent Influenza Vaccination: 2016 Most Recent Tetanus Shot: Pt states less than 10 yrs Vaccination Up to Date: Yes Review of Systems All Other Systems Reviewed And Are Negative: Yes Constitutional: Positive: Fever - subjective, Chills, Fatigue Skin: Positive: Negative Eyes: Positive: Negative ENT: Positive: Sinus Congestion Respiratory: Positive: Cough Cardiovascular: Positive: Negative Gastrointestinal: Positive: Negative Genitourinary: Positive: Negative Motor: Positive: Negative Neurovascular: Positive: Negative Musculoskeletal: Positive: Negative Neurological: Positive: Negative Psychological: Positive: Negative Is Patient Immunocompromised?: No Physical Exam Triage Information Reviewed: Yes Appearance: Ill-Appearing Vital Signs: Initial Vital Signs Temp 99 F 05/10/19 12:36 Pulse 80 05/10/19 12:36 Resp 18 05/10/19 12:36 BP 169/75 05/10/19 12:36 Pulse Ox 97 05/10/19 12:36 Vital Signs Reviewed: Yes Eye Exam: Normal ENT: Positive: Nasal congestion Dental Exam: Normal Neck exam: Normal Respiratory Exam: Normal Respiratory: Positive: Normal breath sounds Cardiovascular Exam: Normal Musculoskeletal Exam: Normal Neurological Exam: Normal Psychological Exam: Normal Skin Exam: Normal, Other - neck tissue/skin stiff and firm Respiratory Course/Dx - Differential Dx/Diagnosis Differential Diagnosis/HQI/PQRI: Bronchitis, Influenza Provider Diagnosis: Viral syndrome Discharge ED - Sign-Out/Discharge Documenting (check all that apply): Patient Departure All imaging exams completed and their final reports reviewed: No Studies - Discharge Plan Condition: Stable Disposition: HOME Prescriptions: Albuterol HFA INHALER* [Ventolin HFA Inhaler*] 1 puff INH Q4H PRN #1 mdi PRN Reason: Sob/Wheezing Benzonatate CAP* [Tessalon 100 MG CAP*] 200 mg PO Q8H PRN #30 cap PRN Reason: Cough predniSONE TAB* [Deltasone 10 MG TAB*] 30 mg PO DAILY #12 tab Patient Education Materials: Viral Syndrome (ED) Referrals: Nena Aguilar MD [Primary Care Provider] - If Needed - Billing Disposition and Condition Condition: STABLE Disposition: Home
== END 2019-05-10 13:00 | disposition home or self-care (01) ==
LOC: UCEAST 12:09
DX: B34.9 Viral infection, unspecified (principal); M43.6 Torticollis; R53.81 Other malaise; R53.83 Other fatigue; R09.81 Nasal congestion; M34.9 Systemic sclerosis, unspecified; R05 Cough; Z88.0 Allergy status to penicillin; Z88.1 Allergy status to other antibiotic agents
CPT/HCPCS: 99212; G0463